=== PATIENT | male | born 1965 | race Caucasian/White ===

== ENCOUNTER 2023-04-20 08:07 | Outpatient (REF) | payer OTHER, SELFPAY ==
--- NOTE | 2023-04-20 08:14 | EMG_ITS ---
Left median and ulnar motor and sensory studies were performed. Left radial sensory study was performed and paraspinal muscles were tested with a needle. IMPRESSION: 1. Culh-iu-twdqcopx left median neuropathy across carpal tunnel. 2. Zhir-kz-ouhrprqc left ulnar neuropathy across cubital tunnel. MD WILLIAM Summers/NOAH / [id number]
== END 2023-04-20 08:08 | disposition home or self-care (01) ==
LOC: HO.NEURO 08:07
PROVIDERS: Visit Provider Nurse Practitioner Family
DX: R20.2 Paresthesia of skin (principal)
CPT/HCPCS: 95886; 95909